=== PATIENT | male | born 1965 | race Caucasian/White ===

== ENCOUNTER 2023-09-07 13:04 | Emergency (ER) | payer MEDICAID ==
[~2023-09-07] VITALS: Ht 180.3 cm; Wt 90.7 kg
[2023-09-07 13:11] VITALS: BP_SYST 143; PULSE 76; RESP 18; TEMP 98.3; O2SAT 98
[2023-09-07 14:25] LABS: BASOPHILS % (AUTO) 0.3 % (0.0-2.0); HEMOGLOBIN 15.4 g/dL (14.0-18.0); LYMPHOCYTES # (AUTO) 1.8 K/uL (1.0-5.5)
[2023-09-07 14:41] LABS: EOSINOPHILS # (AUTO) 0.1 K/uL (0.0-0.4); EOSINOPHILS % (AUTO) 0.8 % (0.0-4.0); LYMPHOCYTES % (AUTO) 26.2 % (20.5-51.5); MEAN CORPUSCULAR HEMOGLOBIN 30 pg (27-31); MEAN CORPUSCULAR HGB CONC 34 % (32-36); MEAN CORPUSCULAR VOLUME 87 fL (79.0-98.0); MONOCYTES # (AUTO) 0.8 K/uL (0.0-1.0); MONOCYTES % (AUTO) 11.3 % (1.7-9.3); NEUTROPHILS # (AUTO) 4.3 K/uL (1.8-7.7); NEUTROPHILS % (AUTO) 61.4 % (40.0-70.0); PLATELET COUNT (AUTO) 237 K/uL (130-430); RED BLOOD CELL COUNT(AUTO) 5.19 MIL/uL (4.2-6.2); RED CELL DISTRIBUTION WIDTH 14.3 % (9.0-15.0)
[2023-09-07 14:58] LABS: ANION GAP 7 (5-15); CALCIUM 9.5 mg/dL (8.4-11.0); CARBON DIOXIDE 27 mmol/L (23-29); CHLORIDE 102 mmol/L (98-107); CREATININE 0.88 mg/dL (0.55-1.30); GFR AFRICAN AMERICAN 114 mL/min (>90); GLUCOSE 95 mg/dL (74-106); POTASSIUM 4.3 mmol/L (3.5-5.1); SODIUM SERUM 136 mmol/L (136-145); UREA NITROGEN, BLOOD 13 mg/dL (8-21)
[2023-09-07 15:01] LABS: GFR NON AFRICAN-AMERICAN 95 mL/min (>90)
[2023-09-07 15:05] LABS: ALANINE AMINOTRANSFERASE 38 U/L (12-78); ALBUMIN 3.6 g/dL (3.4-4.8); ASPARTATE AMINOTRANSFERASE 17 U/L (10-37); BILIRUBIN,DIRECT 0.1 mg/dL (0.0-0.3); TOTAL BILIRUBIN 0.5 mg/dL (0.0-1.0); TOTAL PROTEIN, SERUM 6.7 g/dL (6.4-8.3)
[2023-09-07 17:19] VITALS: BP_SYST 122; PULSE 78; RESP 18; TEMP 98.3; O2SAT 95
== END 2023-09-07 17:19 | disposition home or self-care (01) ==
LOC: SED 13:04
DX: R55 Syncope and collapse (principal); R42 Dizziness and giddiness; R07.2 Precordial pain; E78.5 Hyperlipidemia, unspecified; Z79.899 Other long term (current) drug therapy
CPT/HCPCS: 36415; 70450-TC; 71046-TC; 76376; 80048; 80076; 84484; 85025; 93005; 99285

== ENCOUNTER 2024-05-08 06:33 | Day surgery (SDC) | payer MEDICAID ==
[~2024-05-08] VITALS: Ht 180.3 cm; Wt 93.0 kg
[2024-05-08] MEDS ORDERED: SIMETHICONE 40 MG/0.6 ML ML ONE (07:46)
[2024-05-08] MEDS ORDERED: MEPERIDINE 100 MG INJ. 100 MG/ML VIAL ONE (07:46)
[2024-05-08] MEDS ORDERED: MIDAZOLAM HCL 5 MG/5 ML VIAL ONE (07:46)
[2024-05-08 08:38] VITALS: O2SAT 97
[2024-05-08 08:48] VITALS: TEMP 97.7
[2024-05-08 12:40] VITALS: BP_SYST 121; PULSE 72; RESP 20
== END 2024-05-08 09:17 | disposition home or self-care (01) ==
LOC: SDS 06:33 → SMU 06:38 → SDS 09:17
PROVIDERS: ATTEND Internal Medicine
DX: Z12.11 Encounter for screening for malignant neoplasm of colon (principal); D12.2 Benign neoplasm of ascending colon; K57.30 Diverticulosis of large intestine without perforation or abscess without bleeding; K64.8 Other hemorrhoids; E78.5 Hyperlipidemia, unspecified; Z87.891 Personal history of nicotine dependence; Z98.890 Other specified postprocedural states; Z79.899 Other long term (current) drug therapy
CPT/HCPCS: 45380; 45385; 99152; 88305; G0378; J2250; J2175; 45382; 45384